=== PATIENT | male | born 1990 | race Caucasian/White ===

== ENCOUNTER 2021-07-22 11:56 | Inpatient (IN) | payer MEDICAID ==
[~2021-07-22] VITALS: Ht 167.6 cm; Wt 74.0 kg
[2021-07-22] MEDS ORDERED: ASPIRIN 81MG TABLET PO ONE (12:45)
[2021-07-22] MEDS ORDERED: KETOROLAC 15MG/ML VIAL IV ONE (12:45)
[2021-07-22] MEDS ORDERED: SODIUM CHLORIDE 0.9% 1,000 ML IV ONE (12:45)
[2021-07-22] MEDS: NITROGLYCERIN 0.4MG TABLET SL SL PRN ×2 (12:47→20:41)
[2021-07-22 13:17] LABS: CHLORIDE 108 mEq/L (98-107)
[2021-07-22 13:23] LABS: BASOPHILS % 0.4 % (0.0-2.0); HEMOGLOBIN. 14.9 g/dL (14.0-18.0); LYMPHOCYTES % 17.3 % (20.0-50.0); MEAN CORPUSCULAR HEMOGLOBIN 30.1 pg (28.0-32.0); MEAN CORPUSCULAR VOLUME 88.7 fL (80.0-94.0); MEAN PLATELET VOLUME 7.6 fl (7.4-10.4); MONOCYTES % 5.8 % (2.0-8.0); NEUTROPHILS % 76.5 % (40.0-76.0); PLATELET 282 x1000/uL (130-400); RED BLOOD CELL COUNT 4.96 mill/uL (4.7-6.1); RED CELL DISTRIBUTION WIDTH 14.1 % (11.6-14.6)
[2021-07-22] MEDS ORDERED: GUAIFENESIN 200MG/10ML SUGAR FREE UDC PO PRN (20:30)
[2021-07-22] MEDS ORDERED: ONDANSETRON HCL 4MG/2ML INJ IV PRN (20:30)
[2021-07-22] MEDS ORDERED: DOCUSATE SODIUM 100MG CAPSULE PO PRN (20:30)
[2021-07-22] MEDS ORDERED: CLONIDINE 0.1MG TABLET PO PRN (20:30)
[2021-07-22 21:10] VITALS: BP 103/64
[2021-07-22] MEDS ORDERED: TRAMADOL 50MG TABLET PO PRN (21:26)
[2021-07-22] MEDS ORDERED: NITROGLYCERIN OINT 1GM/INCH UDPKT TD PRN (21:30)
[2021-07-22 22:00] VITALS: BP 103/64
[2021-07-22] MEDS ORDERED: ALPR2TAB2 PO (22:05)
[2021-07-22] MEDS ORDERED: BACL20TA PO (22:07)
[2021-07-22] MEDS ORDERED: IBUP-2437 PO (22:07)
[2021-07-22] MEDS ORDERED: BACLOFEN 10MG TABLET PO SCH (23:00)
[2021-07-22] MEDS: ALPRAZOLAM 0.5 MG TABLET PO SCH (23:03)
[2021-07-22 23:18] LABS: CREATINE KINASE 80 IU/L (39-308)
[2021-07-23] VITALS: BP 117/57
[2021-07-23 04:00] VITALS: BP 101/77
[2021-07-23 07:22] LABS: BASOPHILS % 0.3 % (0.0-2.0); EOSINOPHILS % 0.3 % (0.0-5.0); HEMATOCRIT. 42.4 % (42.0-52.0); HEMOGLOBIN. 14.2 g/dL (14.0-18.0); LYMPHOCYTES % 31.2 % (20.0-50.0); MEAN CORPUSCULAR HEMOGLOBIN 30.2 pg (28.0-32.0); MEAN CORPUSCULAR VOLUME 90.1 fL (80.0-94.0); MEAN PLATELET VOLUME 7.5 fl (7.4-10.4); MONOCYTES % 9.6 % (2.0-8.0); NEUTROPHILS % 58.6 % (40.0-76.0); PLATELET 257 x1000/uL (130-400); RED BLOOD CELL COUNT 4.71 mill/uL (4.7-6.1); RED CELL DISTRIBUTION WIDTH 13.9 % (11.6-14.6)
[2021-07-23 07:36] LABS: CHLORIDE 111 mEq/L (98-107)
[2021-07-23 07:44] LABS: HDL CHOLESTEROL 43 mg/dL (40-59)
[2021-07-23 07:45] LABS: LDL CHOLESTEROL 91 mg/dL (5-100)
[2021-07-23 07:46] LABS: CREATINE KINASE 77 IU/L (39-308)
[2021-07-23 08:00] VITALS: BP 104/72
[2021-07-23] MEDS: ALPRAZOLAM 0.5 MG TABLET PO SCH (08:57)
[2021-07-23] MEDS ORDERED: IBUPROFEN 200MG TABLET PO SCH (09:00)
[2021-07-23] MEDS ORDERED: IBUPROFEN 200 MG PO SCH (09:00)
[2021-07-23] MEDS ORDERED: ASPIRIN 81MG EC TABLET PO SCH (09:00)
[2021-07-23] MEDS ORDERED: MEDICATION NOT ON FORMULARY EA (Alprazolam (Xanax) 2 MG) PO SCH (09:00)
== END 2021-07-23 13:30 | disposition home or self-care (01) | DRG 203 ==
LOC: ER 11:56 → 8WST 16:21 → ENRESERV 20:20
PROVIDERS: ADMIT Hospitalist; ATTEND Hospitalist
DX: M94.0 Chondrocostal junction syndrome [Tietze] (principal); F41.1 Generalized anxiety disorder; Z88.5 Allergy status to narcotic agent; Z88.6 Allergy status to analgesic agent
CPT/HCPCS: 36415; 71045; 80053; 80061; 82550; 84484; 85025; 93005; 99285; J1885; J7030